=== PATIENT | male | born 1970 | race Caucasian/White ===

== ENCOUNTER → 2019-04-14 17:47 | Outpatient (CLI) | payer OTHER, SELFPAY ==
--- NOTE | 2019-04-14 17:52 | DI.RAD.S_ITS ---
PROCEDURE: XR KNEE LT 3V INDICATIONS: pain, swelling medial knee, direct blow from heavy object TECHNIQUE: 3 views of the knee were acquired. COMPARISON: None. FINDINGS: Bones: No fractures or dislocations. No suspicious bony lesions. Moderate tricompartmental osteoarthritis. Soft tissues: No joint effusion. No suspicious soft tissue calcifications. IMPRESSION: No fracture. No acute osseous lesion. If symptoms and/or clinical suspicion for pathology persists, further assessment with repeat radiographs (7-10 days) or advanced imaging (e.g. CT, MRI or bone scan) may be helpful. Dictated by: Odilia Jolly MD, PhD on 04/14/2019 at 18:25 Approved by: Odilia Jolly MD, PhD on 04/14/2019 at 18:26
== END ==
PROVIDERS: Visit Provider Physician Assistant
DX: S80.02XA Contusion of left knee, initial encounter (principal); M25.562 Pain in left knee; M25.462 Effusion, left knee
CPT/HCPCS: 73562